=== PATIENT | female | born 1945 | race Caucasian/White ===

== ENCOUNTER → 2017-06-08 | Outpatient (CLI) | payer MEDICARE, MEDICAID ==
[~2017-06-08] MED LIST: ALBUTEROL-200 PUFFS/ IH; AMIODARONE 200200 MG PO; ASCORBIC ACID500 M2 PO; ASPIRIN 325MG325 MG PO; ATENOLOL25 M1 PO; DIABETA2.5 MG PO; EVISTA60 MG PO; FERROUS SULFAT325 M2 PO; INSULIN GL100 UNITS/ SC; KLOR-CON M2020 ME1 PO; LASIX 40MG. TAB40 MG PO; LOSARTAN POTASS25 MG PO; METFORMIN HYDR500 M1 PO; METOPROLOL25 MG PO; NOVOLOG FLEX100 U/ML SC; PIOGLITAZONE HY45 MG PO; PRAVACHOL40 MG PO; PREVACID 30MG C30 M1 PO; STIOLTO RESPIMA1 SPR IH
[2017-06-08 15:33] LABS: LYMPH # 1.4 K/mm3 (0.7-4.5); LYMPH % 10.3 % (10-50.0)
[2017-06-08 15:43] LABS: HEMOGLOBIN 12.4 g/dL (12.2-16.2)
[2017-06-08 16:00] LABS: BUN 8 mg/dL (7-18)
[2017-06-08 16:01] LABS: GFR (ESTIMATED) 71 ML/MIN (59-)
== END ==
LOC: LAB 14:27
PROVIDERS: Orthopaedic Surgery
DX: S52.501A Unspecified fracture of the lower end of right radius, initial encounter for closed fracture (principal)

== ENCOUNTER → 2017-07-02 | Outpatient (CLI) | payer MEDICARE, MEDICAID ==
--- NOTE | 2017-07-02 15:06 | RADIOLOGY REPORT PS360 ---
PROCEDURE: 2-D M-mode and color Doppler study INDICATIONS FOR THE TEST: Chest pain COPD+ Heart Murmur Tobacco Smoking Palpitations Fatigue Syncope Edema Hypertension+Diabetes Mellitus+ Rheumatic Fever SOB VIERA Obesity Hyperlipidemia+ Family History HD Additional History DIZZINESS, RECENT AV VALVE REPAIR/REPLACEMENT PATIENT INFORMATION HEIGHT: 62 WEIGHT:225 GENDER: Female B/P:125/79 2-D/M-MODE INTERPRETATION: 2-D MEASUREMENTS OBSERVED VALUES IN CMS Right Ventricular Dimension (RVDd) 2.1 Interventricular Septum (Thickness)(IVsd) 1.3 Left Ventricular Internal Dimensions(LVIDd) 4.7 Left Ventricular Posterior Wall (Thickness)(LVPWd) 0.8 Aortic Root 2.0 Aortic Cusp Separation 1.5 Left Atrial Dimensions (LAD) 3.6 2D 1. Technically very difficult study, endocardial surfaces are very poorly visualized. 2. The left atrium is mildly enlarged, left ventricle is normal size, there is mild concentric left ventricular hypertrophy, visually estimated ejection fraction of 55% with no obvious regional wall motion abnormality, endocardial surfaces are somewhat poorly visualized. 3. The right atrium and right ventricle are normal size and contractility. 4. 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 5. The mitral and tricuspid valve leaflets are minimally thickened. 6. The pulmonic valve is poorly visualized. 7. No significant pericardial effusion noted. DOPPLER INTERROGATION: 1. The aortic out flow velocity across the prosthetic valve is within normal range, there is no aortic outflow obstruction or aortic insufficiency. 2. The mitral inflow velocity within normal range, there is no mitral stenosis, there is mild mitral regurgitation, Doppler evidence of impaired LV relaxation seen, tissue Doppler is inconclusive. 3. There is mild tricuspid regurgitation noted, tricuspid regurgitant jet velocity insufficient for calculation of the right ventricular systolic pressure. CONCLUSION: 1. Technically difficult study because of the patient's factor and poor acoustic windows. 2. Mildly enlarged left atrium, normal left ventricular size, mild concentric left ventricular hypertrophy present, visually estimated ejection fraction of 55% with no obvious regional wall motion abnormality, Doppler evidence of impaired LV relaxation seen. 3. 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 3. Mild mitral and tricuspid regurgitation. 4. No significant pericardial effusion noted.
== END ==
LOC: RT 07:32
DX: I25.10 Atherosclerotic heart disease of native coronary artery without angina pectoris (principal); I10 Essential (primary) hypertension; E11.9 Type 2 diabetes mellitus without complications; J44.9 Chronic obstructive pulmonary disease, unspecified; Z01.818 Encounter for other preprocedural examination

== ENCOUNTER → 2017-07-03 | Outpatient (CLI) | payer MEDICARE ==
[2017-07-03 10:32] LABS: BILIRUBIN, INDIRECT 0.23 mg/dL (0-0.9)
== END ==
LOC: LAB 07:46
PROVIDERS: Internal Medicine Cardiovascular Disease
DX: I10 Essential (primary) hypertension (principal); E11.9 Type 2 diabetes mellitus without complications; I25.10 Atherosclerotic heart disease of native coronary artery without angina pectoris; J44.9 Chronic obstructive pulmonary disease, unspecified; Z01.818 Encounter for other preprocedural examination

== ENCOUNTER → 2017-07-27 | Outpatient (CLI) | payer MEDICARE, MEDICAID ==
--- NOTE | 2017-08-01 10:57 | RADIOLOGY REPORT PS360 ---
WRIST-3 VIEWS-RT HISTORY: [facility] follow-up ORIF fracture distal radius Patient Age: 71 years: Female Ordering Physician: GENNY CHAVES MD TECHNIQUE: 3 view COMPARISON :[id number] right wrist 3 views FINDINGS ORIF with Metallic plate applied to the anterior aspect of the distal radius of providing fixation, and secured by multiple screws. The fracture and fixation elements appear stable since prior study. The fiberglass splint/cast is been removed. Suggestion of very early healing IMPRESSION: ORIF distal right radial fracture. Stable position of fracture and fixation elements
== END ==
LOC: RAD 09:33
DX: Z47.89 Encounter for other orthopedic aftercare (principal)

== ENCOUNTER → 2017-09-07 | Outpatient (CLI) | payer MEDICARE, MEDICAID ==
--- NOTE | 2017-09-07 10:05 | RADIOLOGY REPORT PS360 ---
WRIST-3 VIEWS-RT HISTORY: Follow-up fracture [facility]EDIC AFTERC[facility] ORDERING PHYSICIAN: GENNY CHAVES MD PATIENT AGE: 71 years COMPARISON: 07/27/2017 FINDINGS Status post ORIF with metallic plate applied to the anterior aspect of the distal radius providing fixation, and secured by multiple screws. The fracture and fixation elements appear stable since prior study. Fracture line is less apparent consistent with healing. There is some sclerosis about the fracture line. IMPRESSION: Healing distal radial fracture status post ORIF
== END ==
LOC: RAD 08:37
DX: Z47.89 Encounter for other orthopedic aftercare (principal)

== ENCOUNTER → 2017-09-19 | Outpatient (CLI) | payer MEDICARE, MEDICAID ==
--- NOTE | 2017-09-20 14:34 | RADIOLOGY REPORT PS360 ---
FLUOROSCOPY CHARGE .25 HOUR CLINICAL INDICATION: RT WRIST HARDWARE CHECK ORDERING PHYSICIAN: GENNY CHAVES MD PATIENT AGE: 71 years Fluoroscopy: 2 minutes and 20 seconds COMPARISON: 09/07/2017 FINDINGS: Under real-time fluoroscopy patient was examined. The screws in the distal aspect of the anterior bone plate do not appear to enter into the joint space. Examination is performed with Dr. Chaves . 10 spot views were obtained IMPRESSION: No evidence of intra-articular extension of the distal radial screws
== END ==
LOC: RAD 14:09
DX: Z47.89 Encounter for other orthopedic aftercare (principal)